=== PATIENT | male | born 1955 | race Two or more races ===

== ENCOUNTER 2023-12-10 08:01 | Day surgery (SDC) | payer BC, MEDICARE ==
[~2023-12-10] VITALS: Ht 180.3 cm; Wt 77.1 kg
[~2023-12-10 08:01] MED LIST: ASPI81CH59 PO; ATOR20TA PO; CLOP75TA28 PO; HYDR25TA5 PO; METO25TA5 PO; TRAM50TA2 PO; VALS320T PO
[2023-12-10] MEDS ORDERED: DexAMETHasone SOD PHOS 4 MG/1ML SDV INJ ONE (08:13)
[2023-12-10] MEDS ORDERED: EPINEPHrine HCL 1 MG/1 ML AMP ONE (08:16)
[2023-12-10] MEDS ORDERED: ceFAZolin 2 GM/D5W100ml 100 ML IV ONE (08:40)
[2023-12-10] MEDS ORDERED: fentaNYL CITRATE 100 MCG/2 ML VL ONE (08:53)
[2023-12-10] MEDS ORDERED: MIDAZOLAM HCL 2MG/2ML 2ml VIAL (1mg/ml) ONE (08:54)
[2023-12-10] MEDS ORDERED: MEPERIDINE HCL (25 MG/ML) 1ML VIAL ONE (08:54)
[2023-12-10] MEDS ORDERED: LIDOCAINE 2% JELLY 11ml (GLYDO) ONE (09:44)
[2023-12-10] MEDS ORDERED: DexAMETHasone SOD PHOS 10MG/1ML VIAL INJ ONE (10:02)
[2023-12-10] MEDS ORDERED: PROPOFOL 10 MG/ML 20 ML IV ONE (10:02)
[2023-12-10] MEDS ORDERED: ONDANSETRON HCL 4 MG/2 ML VIAL ONE (10:07)
[2023-12-10] MEDS ORDERED: ePHEDrine SULFATE 50 MG/ML AMP IV PRN (10:15)
[2023-12-10] MEDS ORDERED: ONDANSETRON HCL 4 MG/2 ML VIAL IV PRN (10:15)
[2023-12-10] MEDS ORDERED: LABETALOL HCL 5 MG/ML 4ML SYRINGE IV PRN (10:15)
[2023-12-10] MEDS ORDERED: MORPHINE SULFATE 4 MG/ML SYR/VIAL IV PRN (10:15)
[2023-12-10] MEDS ORDERED: MIDAZOLAM HCL 2MG/2ML 2ml VIAL (1mg/ml) IV PRN (10:15)
[2023-12-10] MEDS: EPINEPHrine HCL 1 MG/1 ML AMP ONE (10:43)
[2023-12-10 11:32] VITALS: TEMP 96.6; O2SAT 100
[2023-12-10] MEDS: KETOROLAC TROMETH 30 MG/ML 1ML VIAL IV ONE (12:04)
[2023-12-10] MEDS: HYDROmorphone HCL 2 MG/ML VL/or syr IV PRN (12:33)
[2023-12-10] MEDS: hydrALAZINE HCL 20 MG/ML VL IV PRN (13:08)
[2023-12-10] MEDS ORDERED: LABETALOL HCL 5 MG/ML 4ML SYRINGE IV ONE (13:55)
[2023-12-10 14:40] VITALS: BP 137/74; PULSE 104; RESP 16; O2SAT 98
== END 2023-12-10 15:00 | disposition home or self-care (01) ==
LOC: SUR 08:01
PROVIDERS: ATTEND Orthopaedic Surgery
DX: M75.122 Complete rotator cuff tear or rupture of left shoulder, not specified as traumatic (principal); M75.42 Impingement syndrome of left shoulder; M75.52 Bursitis of left shoulder; S46.212A Strain of muscle, fascia and tendon of other parts of biceps, left arm, initial encounter; X58.XXXA Exposure to other specified factors, initial encounter; Y93.89 Activity, other specified; Y92.89 Other specified places as the place of occurrence of the external cause; Y99.8 Other external cause status
CPT/HCPCS: 29826; 29827; J0171; J0360; J1100; J1170; J1885; J2175; J2250; J2405; J2704; J3010; J3490; A4565

== ENCOUNTER 2023-12-16 09:55 | Inpatient (IN) | payer BC, MEDICARE ==
[~2023-12-16] VITALS: Ht 172.7 cm; Wt 54.5 kg
[2023-12-16 10:25] VITALS: PULSE 154; RESP 16; O2SAT 100
[2023-12-16] MEDS: SODIUM CHLORIDE 0.9% 1,000 ML IV ONE ×3 (10:58→12:51)
[2023-12-16 11:02] LABS: Basophils # (auto) 0 10 ^3/uL (0-0.2); Basophils % (auto) 0.2 % (0.0-2.0); Eosinophils # (auto) 0.1 10 ^3/uL (0-0.8); Hematocrit 35.3 % (41.0-53.0); Hemoglobin 12.3 g/dL (13.5-17.5); Lymphocytes # (auto) 0.2 10 ^3/uL (0.4-5.4); Lymphocytes % (auto) 1.7 % (10.0-50.0); Mean Corpuscular Hemoglobin 32.8 pg (28.0-32.0); Mean Corpuscular Volume 93.6 fL (80.0-100.0); Monocytes # (auto) 0.5 10 ^3/uL (0-1.3); Monocytes % (auto) 5.5 % (0.0-12.0); Neutrophils # (auto) 9.1 10 ^3/uL (1.6-8.6); Neutrophils % (auto) 91.6 % (37.0-80.0); Red Blood Cells 3.77 10^6/uL (4.5-5.90); Red Cell Distribution Width 14.5 % (11.8-14.3)
[2023-12-16 11:17] LABS: INR 1.09 (0.9-1.15); Prothrombin Time 11.4 sec (9.3-11.8)
[2023-12-16 11:22] LABS: Alanine Aminotransferase 105 U/L (7-40); Albumin 3.6 g/dL (3.2-4.8); Alkaline Phosphatase 305 U/L (46-116); Anion Gap 12 (5-15); Aspartate Aminotransferase 141 U/L (13-40); BUN/Creatinine Ratio 52.7 (10.0-20.0); Bilirubin, Total 3.5 mg/dL (0.2-1.0); Calcium 8.1 mg/dL (8.7-10.4); Carbon Dioxide 22 mmol/L (20-30); Chloride 101 mmol/L (98-107); Glucose 117 mg/dL (74-106); Magnesium 2.6 mg/dL (1.6-2.6); Potassium 2.6 mmol/L (3.5-5.1); Sodium 135 mmol/L (136-145); Total Protein 6.2 g/dL (5.7-8.2)
[2023-12-16 11:28] LABS: Blood Urea Nitrogen 106 mg/dL (9-23); Platelet Estimate Decreased
[2023-12-16] MEDS: HEPARIN SODIUM (PORCINE) 5000 UNITS/ML 1ML VIAL IV ONE (11:56)
[2023-12-16] MEDS ORDERED: HEPARIN SODIUM (PORCINE) 5000 UNITS/ML 1ML VIAL IV ONE (12:30)
[2023-12-16] MEDS ORDERED: POTASSIUM CHL 20MEQ/100ML 100 ML IV SCH (12:30)
[2023-12-16] MEDS ORDERED: VANCOMYCIN PER PHARMACY 0 MG IV SCH (12:30)
[2023-12-16] MEDS: POTASSIUM CHL 20MEQ/100ML 100 ML IV SCH ×2 (12:32→17:07)
[2023-12-16 12:44] LABS: Lactic Acid w/Reflex 2.1 mmol/L (0.4-2.0)
[2023-12-16] MEDS: CEFEPIME 1GM/ 50ML 50 ML IV ONE (13:07)
[2023-12-16 13:11] LABS: Triglycerides 497 mg/dL (< 150)
[2023-12-16 13:13] LABS: Cholesterol 102 mg/dL (< 200); HDL Cholesterol < 5 mg/dL (40-59)
[2023-12-16] MEDS: HEPARIN DRIP/D5W 100UNITS/ML 250 ML IV SCH ×2 (13:22→22:22)
[2023-12-16] MEDS: OPTISON 3ml Vial for INJ IV ONE (13:35)
[2023-12-16] MEDS ORDERED: NITROGLYCERIN 0.4 MG SL TAB SL PRN (13:45)
[2023-12-16] MEDS ORDERED: MORPHINE SULFATE INJ 2 MG/ml SYRG IV PRN (13:45)
[2023-12-16] MEDS: SODIUM CHLORIDE 0.9% 1,000 ML IV SCH ×2 (14:00→21:33)
[2023-12-16] MEDS ORDERED: VANCOMYCIN 1GM/200ML 200 ML IV ONE (14:00)
[2023-12-16] MEDS ORDERED: VANCOMYCIN 750mg/150ml 250 ML IV SCH (14:00)
[2023-12-16] MEDS: DEXTROSE 10% 0 ML IV ONE (14:15)
[2023-12-16] MEDS: EPINEPHrine HCL 250 ML IV ONE (14:16)
[2023-12-16] MEDS: DEXTROSE 50% SYRINGE 50 ML IV ONE (14:37)
[2023-12-16] MEDS: EPINEPHrine HCL 1 MG/10 ML SYRG ONE (14:38)
[2023-12-16] MEDS: SODIUM BICARBONATE 8.4% INJ 50ML SYRINGE ONE (14:38)
[2023-12-16 14:47] LABS: INR 1.13 (0.9-1.15); Partial Thromboplastin Time 43.6 SEC (24.5-34.5); Prothrombin Time 11.8 sec (9.3-11.8)
[2023-12-16] MEDS: AMIODARONE 450mg/250ml AE 250 ML IV SCH ×2 (14:51→21:33)
[2023-12-16] MEDS: AMIODARONE BOLUS KIT 100 ML IV ONE (14:51)
[2023-12-16] MEDS: VANCOMYCIN 750mg/150ml 150 ML IV SCH (15:27)
[2023-12-16 16:29] LABS: Amphetamine Screen, Urine Neg (NEGATIVE); Barbiturate Scree,Urine Neg (NEGATIVE); Benzodiazephine Screen, Urine Neg (NEGATIVE); Cannabinoid Screen, Urine Neg (NEGATIVE); Cocaine Screen, Urine Neg (NEGATIVE); Opiate Scree,Urine Neg (NEGATIVE); Phencyclidine Screen, Urine Neg (NEGATIVE); Urine Bacteria FEW /hpf (None Seen); Urine Blood 2+ /uL (Negative); Urine Budding Yeast OCCASIONAL /hpf (None Seen); Urine Clarity HAZY (Clear); Urine Color Yellow (Yellow); Urine Hyaline Cast MOD /lpf (0 - 2); Urine Mucus FEW (None Seen); Urine Protein, UAD 1+ (Negative); Urine Specific Gravity 1.016 (1.001-1.035); Urine Sperm PRESENT /hpf (None Seen); Urine WBC 11 /hpf (0 - 3); Urine pH 5.5 (5.0-8.0)
[2023-12-16] MEDS ORDERED: MIDAZOLAM HCL 2MG/2ML 2ml VIAL (1mg/ml) IV PRN (20:15)
[2023-12-16] MEDS: CEFEPIME 1GM/ 50ML 50 ML IV SCH (21:39)
[2023-12-17] VITALS (57 sets, daily range): BP systolic 76–215; BP diastolic 24–98; PULSE 61–110; RESP 18–28; TEMP 100.6; O2SAT 96–100
[2023-12-17] MEDS ORDERED: CEFEPIME 1GM/ 50ML 50 ML IV SCH (01:00)
[2023-12-17] MEDS ORDERED: ETOMIDATE (2MG/ML) 20ML VIAL IV ONE (05:08)
[2023-12-17] MEDS ORDERED: SUCCINYLCHOLINE CHLORIDE 20 MG/ML 10ML VIAL IV ONE (05:10)
[2023-12-17] MEDS ORDERED: MIDAZOLAM DRIP 50 mg/50mL 50 ML IV ONE (05:10)
[2023-12-17] MEDS: ETOMIDATE (2MG/ML) 20ML VIAL IV ONE (05:12)
[2023-12-17] MEDS: SUCCINYLCHOLINE CHLORIDE 20 MG/ML 10ML VIAL IV ONE (05:13)
[2023-12-17] MEDS: MIDAZOLAM DRIP 50 mg/50mL 50 ML IV SCH (05:20)
[2023-12-17 06:16] LABS: Basophils # (auto) 0 10 ^3/uL (0-0.2); Eosinophils # (auto) 0.7 10 ^3/uL (0-0.8); Hemoglobin 11.9 g/dL (13.5-17.5); Lymphocytes # (auto) 0.3 10 ^3/uL (0.4-5.4); Monocytes # (auto) 1.2 10 ^3/uL (0-1.3)
[2023-12-17 06:19] LABS: Basophils % (auto) 0.2 % (0.0-2.0); Eosinophils % (auto) 4.3 % (0.0-7.0); Hematocrit 34.8 % (41.0-53.0); Lymphocytes % (auto) 1.8 % (10.0-50.0); Mean Corpuscular Hgb Conc. 34.3 g/dL (32.0-36.0); Mean Corpuscular Volume 93.4 fL (80.0-100.0); Monocytes % (auto) 7.5 % (0.0-12.0); Neutrophils # (auto) 14.3 10 ^3/uL (1.6-8.6); Neutrophils % (auto) 86.2 % (37.0-80.0); Red Blood Cells 3.73 10^6/uL (4.5-5.90); Red Cell Distribution Width 14.4 % (11.8-14.3); White Blood Cell 16.6 10^3/uL (4.4-10.8)
[2023-12-17 06:33] LABS: Alanine Aminotransferase 115 U/L (7-40); Alkaline Phosphatase 310 U/L (46-116); Anion Gap 13 (5-15); Aspartate Aminotransferase 140 U/L (13-40); BUN/Creatinine Ratio 47.9 (10.0-20.0); Calcium 8.2 mg/dL (8.5-10.1); Carbon Dioxide 19 mmol/L (20-30); Chloride 108 mmol/L (98-107); Glucose 174 mg/dL (74-106); Potassium 2.7 mmol/L (3.5-5.1); Sodium 140 mmol/L (136-145)
[2023-12-17 06:34] LABS: Albumin 3.3 g/dL (3.2-4.8); Bilirubin, Total 4.4 mg/dL (0.2-1.0)
[2023-12-17 06:35] LABS: Total Protein 6.1 g/dL (5.7-8.2)
[2023-12-17 06:40] LABS: Blood Urea Nitrogen 69 mg/dL (9-23)
[2023-12-17 06:57] LABS: Base Excess -5.7 mmol/L (-2.0-2.0)
[2023-12-17 07:00] LABS: Platelet Estimate Decreased
[2023-12-17] MEDS ORDERED: ACETAMINOPHEN IV 1000 MG/100ML (10MG/ML) IV PRN ×2 (07:15→07:45)
[2023-12-17] MEDS ORDERED: NOREPINEPHRINE 8 MG/250ML KIT 250 ML IV ONE (07:31)
[2023-12-17] MEDS ORDERED: PROPOFOL 100 ML IV SCH (08:45)
[2023-12-17] MEDS: NOREPINEPHRINE 8 MG/250ML KIT 250 ML IV SCH (08:45)
[2023-12-17] MEDS ORDERED: SODIUM CHL 3% 500 ML IV STA (09:06)
[2023-12-17] MEDS ORDERED: DESMOPRESSIN INJECTION 20 MCG in SODIUM CHL 0.9% 50 ML IV STA (09:26)
[2023-12-17] MEDS: fentaNYL Drip 2500mCg/250mlNS 250 ML IV SCH (09:55)
[2023-12-17] MEDS: SODIUM CHL 3% 500 ML IV STA (09:56)
[2023-12-17] MEDS: FAMOTIDINE (10MG/ML) 2ML VL IV SCH (10:00)
[2023-12-17] MEDS: DESMOPRESSIN INJECTION 20 MCG in SODIUM CHL 0.9% 50 ML IV STA (10:31)
[2023-12-17] MEDS: PROTAMINE SULFATE 50 MG in SODIUM CHL 0.9% 50 ML IV STA (10:36)
[2023-12-17] MEDS ORDERED: VASOPRESSIN 20 UNIT/ML ONE (10:44)
[2023-12-17] MEDS ORDERED: MANNITOL 20 % (20GM/100ML) 500 ML IV ONE (10:49)
[2023-12-17] MEDS: VASOPRESSIN 20 UNITS in SODIUM CHL 0.9% 99 ML IV SCH (10:57)
[2023-12-17] MEDS: MANNITOL 20% SOLN 100 gm/500ml 250 ML IV STA (11:00)
[2023-12-17] MEDS ORDERED: FLUT0.05 NAS (12:20)
[2023-12-17] MEDS ORDERED: FLUT50SP NAS (12:21)
[2023-12-17] MEDS: PHENYLEPHRINE IV 250 ML IV SCH (13:09)
[2023-12-17 13:47] LABS: Chloride 109 mmol/L (98-107); Potassium 2.9 mmol/L (3.5-5.1); Sodium 138 mmol/L (136-145)
[2023-12-17 13:48] LABS: Anion Gap 9 (5-15); Carbon Dioxide 20 mmol/L (20-30)
[2023-12-17 13:49] LABS: Calcium 7.5 mg/dL (8.5-10.1)
[2023-12-17 13:53] LABS: BUN/Creatinine Ratio 43.8 (10.0-20.0); Blood Urea Nitrogen 64 mg/dL (9-23); Glucose 150 mg/dL (74-106)
[2023-12-17] MEDS: POTASSIUM CHL 20MEQ/100ML 100 ML IV SCH (17:26)
[2023-12-17] MEDS: SODIUM CHL 3% 500 ML IV ONE (19:44)
[2023-12-17] MEDS: EPINEPHrine HCL 250 ML IV SCH (22:27)
[2023-12-18] VITALS (12 sets, daily range): BP systolic 96–144; BP diastolic 41–67; PULSE 67–102; RESP 16–27; TEMP 99.1; O2SAT 10–100
[2023-12-18 07:10] LABS: Base Excess -12.3 mmol/L (-2.0-2.0)
[2023-12-18 08:14] LABS: Hematocrit 27.5 % (41.0-53.0); Hemoglobin 8.6 g/dL (13.5-17.5); Mean Corpuscular Hemoglobin 31.8 pg (28.0-32.0); Mean Corpuscular Hgb Conc. 31.3 g/dL (32.0-36.0); Mean Corpuscular Volume 101.6 fL (80.0-100.0); Red Cell Distribution Width 16.9 % (11.8-14.3); White Blood Cell 20.2 10^3/uL (4.4-10.8)
[2023-12-18 08:16] LABS: Basophils % (manual) 0 (0.0-2.0); Blast Cells 0; Eosinophils % (manual) 0 (0-7); Metamyelocytes % 0; Myelocytes % 0; Promyelocytes % 0; Reactive Lymphocytes 0
[2023-12-18 08:23] LABS: Alanine Aminotransferase 54 U/L (7-40); Albumin 2.2 g/dL (3.2-4.8); Alkaline Phosphatase 269 U/L (46-116); Anion Gap 13 (5-15); Aspartate Aminotransferase 56 U/L (13-40); Calcium 6.7 mg/dL (8.5-10.1); Carbon Dioxide 14 mmol/L (20-30); Glucose 89 mg/dL (74-106); INR 1.25 (0.9-1.15); Potassium 2.6 mmol/L (3.5-5.1); Prothrombin Time 12.9 sec (9.3-11.8)
[2023-12-18 08:24] LABS: Bilirubin, Total 2.7 mg/dL (0.2-1.0); Total Protein 4.4 g/dL (5.7-8.2)
[2023-12-18 08:25] LABS: Blood Urea Nitrogen 48 mg/dL (9-23); Chloride 132 mmol/L (98-107); Sodium 159 mmol/L (136-145)
[2023-12-18 08:47] LABS: Band Neutrophils % (manual) 4; Lymphocytes % (manual) 5 (10.0-50.0); Monocytes % (manual) 7 (0-12)
[2023-12-18 08:48] LABS: Platelet Estimate Decreased
[2023-12-18] MEDS: PHENYLEPHRINE INJ 80 MG in SODIUM CHL 0.9% 242 ML IV SCH (09:35)
[2023-12-18] MEDS: NOREPINEPHRINE BITARTRATE 32 MG in SODIUM CHL 0.9% 218 ML IV SCH (09:41)
[2023-12-18] MEDS: D5W/SOD CHL 0.45% 1,000 ML IV SCH (09:54)
[2023-12-18] MEDS: POTASSIUM CHL 20MEQ/100ML 100 ML IV SCH (09:57)
[2023-12-18] MEDS: SODIUM BICARBONATE 8.4 % INJ 50ML VIAL IV ONE (09:58)
[2023-12-18 12:37] LABS: Alanine Aminotransferase 59 U/L (7-40); Albumin 2.4 g/dL (3.2-4.8); Alkaline Phosphatase 261 U/L (46-116); Anion Gap 12 (5-15); Aspartate Aminotransferase 66 U/L (13-40); BUN/Creatinine Ratio 37.2 (10.0-20.0); Blood Urea Nitrogen 54 mg/dL (9-23); Calcium 7.4 mg/dL (8.5-10.1); Carbon Dioxide 19 mmol/L (20-30); Chloride 129 mmol/L (98-107); Glucose 98 mg/dL (74-106); Potassium 3.1 mmol/L (3.5-5.1); Sodium 160 mmol/L (136-145); Total Protein 4.9 g/dL (5.7-8.2)
[2023-12-18 14:47] LABS: Alanine Aminotransferase 57 U/L (7-40); Albumin 2.3 g/dL (3.2-4.8); Alkaline Phosphatase 243 U/L (46-116); Anion Gap 14 (5-15); Aspartate Aminotransferase 64 U/L (13-40); BUN/Creatinine Ratio 42.9 (10.0-20.0); Blood Urea Nitrogen 60 mg/dL (9-23); Calcium 7.4 mg/dL (8.5-10.1); Carbon Dioxide 18 mmol/L (20-30); Chloride 128 mmol/L (98-107); Glucose 121 mg/dL (74-106); Potassium 3.2 mmol/L (3.5-5.1); Sodium 160 mmol/L (136-145); Total Protein 4.8 g/dL (5.7-8.2)
[2023-12-18 15:56] LABS: Base Excess -8.1 mmol/L (-2.0-2.0)
[2023-12-18 18:50] LABS: Alanine Aminotransferase 57 U/L (7-40); Albumin 2.3 g/dL (3.2-4.8); Alkaline Phosphatase 219 U/L (46-116); Anion Gap 12 (5-15); Aspartate Aminotransferase 66 U/L (13-40); Calcium 7.1 mg/dL (8.7-10.4); Carbon Dioxide 17 mmol/L (20-30); Chloride 128 mmol/L (98-107); Glucose 160 mg/dL (74-106); Potassium 3.4 mmol/L (3.5-5.1); Sodium 157 mmol/L (136-145)
[2023-12-18 18:51] LABS: Bilirubin, Total 2.9 mg/dL (0.2-1.0); Total Protein 4.6 g/dL (5.7-8.2)
[2023-12-18 18:53] LABS: Blood Urea Nitrogen 50 mg/dL (9-23)
[2023-12-18] MEDS ORDERED: LORazepam 2MG/ML-1ML VIAL ONE (19:06)
[2023-12-18] MEDS: MORPHINE SULFATE 4 MG/ML SYR/VIAL IV PRN (19:23)
[2023-12-18] MEDS: LORazepam 2MG/ML-1ML VIAL IV PRN (19:24)
== END 2023-12-18 19:40 | DRG 871 ==
LOC: ER 09:55 → EDBD 09:55 → TELE 13:35 → UNDODISIN 12-18 19:40
PROVIDERS: ADMIT Student in an Organized Health Care Education/Training Program; ATTEND Student in an Organized Health Care Education/Training Program
PROC: 5A1935Z Respiratory Ventilation, Less than 24 Consecutive Hours (ICD-10-PCS; principal; 2023-12-17)
PROC: 0BH17EZ Insertion of Endotracheal Airway into Trachea, Via Natural or Artificial Opening (ICD-10-PCS; 2023-12-17)
PROC: 06HY33Z Insertion of Infusion Device into Lower Vein, Percutaneous Approach (ICD-10-PCS; 2023-12-17)
PROC: B54BZZA Ultrasonography of Right Lower Extremity Veins, Guidance (ICD-10-PCS; 2023-12-17)
DX: A41.9 Sepsis, unspecified organism (principal); G93.41 Metabolic encephalopathy; G93.5 Compression of brain; J96.00 Acute respiratory failure, unspecified whether with hypoxia or hypercapnia; I21.4 Non-ST elevation (NSTEMI) myocardial infarction; N17.0 Acute kidney failure with tubular necrosis; G45.9 Transient cerebral ischemic attack, unspecified; E87.1 Hypo-osmolality and hyponatremia; G93.1 Anoxic brain damage, not elsewhere classified; E87.20 Acidosis, unspecified; I48.91 Unspecified atrial fibrillation; D69.6 Thrombocytopenia, unspecified; R74.01 Elevation of levels of liver transaminase levels; F17.200 Nicotine dependence, unspecified, uncomplicated; E86.0 Dehydration; I45.10 Unspecified right bundle-branch block; Z66 Do not resuscitate; D69.1 Qualitative platelet defects; I25.10 Atherosclerotic heart disease of native coronary artery without angina pectoris; I10 Essential (primary) hypertension; E78.5 Hyperlipidemia, unspecified; E87.6 Hypokalemia; Z79.82 Long term (current) use of aspirin; Z85.07 Personal history of malignant neoplasm of pancreas; Z79.899 Other long term (current) drug therapy; Z51.5 Encounter for palliative care; Z86.73 Personal history of transient ischemic attack (TIA), and cerebral infarction without residual deficits; Z91.81 History of falling; Z98.61 Coronary angioplasty status
CPT/HCPCS: 36415; 36600; 70450; 71045; 73620; 78582; 80048; 80053; 80061; 80307; 81001; 82140; 82805; 83036; 83605; 83735; 83880; 84443; 84484; 85007; 85025; 85027; 85049; 85610; 85730; 87040; 87070; 87077; 87186; 87205; 93005; 93306; 93970; 93971; 94002; 94003; 95819; 97110; 97162; G0378; J0171; J0330; J2250; J2704; J3480; J3490; Q9956